=== PATIENT | male | born 1950 | race African-American/Black ===

== ENCOUNTER 2016-05-14 13:04 | Inpatient (IN) | payer OTHER ==
[2016-05-14] MEDS ORDERED: methylPREDNISolone NA SUCC 125 MG/2 ML VIAL IVPB ONE (13:12)
[2016-05-14] MEDS ORDERED: FAMOTIDINE 20 MG/50 ML IVPB 20 MG in PREMIX 50 IVPB ONE (13:13)
--- NOTE | 2016-05-14 13:18 | PDOC ---
History of Present Illness - General Chief Complaint: Allergic Reaction Stated Complaint: ALLERGIC REACTION Time Seen by Provider: 05/14/16 13:09 History Source: Patient Exam Limitations: No Limitations - History of Present Illness Initial Comments: 05/14/16 13:17 CHIEF COMPLAINT: Difficulty breathing HISTORY OF PRESENT ILLNESS: This is a 66 year old male with a history of HTN, dyslipidemia, and NIDDM who presents by ambulance complaining of sudden onset of difficulty breathing at 12pm. He is unable to swallow his own saliva and notes a change in his voice. He denies ingestion of any new foods. He started taking Lisinopril/HCTZ two days ago. V/s on arrival are notable for P 110 and RR 24. PCP is Dr. Moralez at [facility]. REVIEW OF SYSTEMS: GENERAL/CONSTITUTIONAL: No fever or chills. No weakness. No weight change. HEAD, EYES, EARS, NOSE AND THROAT: Difficulty swallowing, change in voice. CARDIOVASCULAR: No chest pain or palpitations. RESPIRATORY: Difficulty breathing. GASTROINTESTINAL: No nausea, vomiting, diarrhea or constipation. GENITOURINARY: No dysuria, frequency, or change in urination. MUSCULOSKELETAL: No joint or muscle swelling or pain. No neck or back pain. SKIN: No rash or easy bruising. NEUROLOGIC: No headache, vertigo, loss of consciousness, or loss of sensation. PSYCHIATRIC: No depression or anxiety. ENDOCRINE: No increased thirst. No abnormal weight change. HEMATOLOGIC/LYMPHATIC: No anemia, easy bleeding, or history of blood clots. ALLERGIC/IMMUNOLOGIC: Sulfa allergy. PHYSICAL EXAM: GENERAL: The patient is awake, alert, and fully oriented, in no acute distress. HEAD: Normal with no signs of trauma. ENT: Marked soft palate and uvular edema. Tongue and lips are normal. Unable to swallow secretions. Muffled voice. No stridor at rest; stridor is inducible. LUNGS: Tachypnea. Clear to auscultation bilaterally. Normal excursion. No respiratory distress or use of accessory muscles. CV: RRR, S1/S2, no MRG. Cap refill < 2 sec. ABDOMEN: Soft, non-distended, non-tender. EXTREMITIES: Normal range of motion, no edema. NEUROLOGICAL: Normal speech, normal gait. CN II-XII grossly intact. PSYCH: Normal mood, normal affect. SKIN: Warm, dry, normal turgor, no rashes or lesions noted. Past History - Past Medical History Allergies/Adverse Reactions: Allergies Allergy/AdvReac Type Severity Reaction Status Date / Time Sulfa (Sulfonamide Allergy Mild Rash Verified 05/14/16 13:12 Antibiotics) ED Treatment Course - LABORATORY CBC & Chemistry Diagram: 05/14/16 13:20 05/14/16 13:20 - RADIOLOGY Radiology Studies Ordered: Category Date Time Status CHEST X-RAY PORTABLE* [RAD] Stat Radiology 05/14/16 13:11 Ordered Medical Decision Making - Medical Decision Making 05/14/16 13:27 A/P: 66 year old male with angioedema, likely ACEI-induced. 1. Patient placed in monitored bed, IV access immediately obtained by the nurse 2. Solu-Medrol 125mg, Pepcid 20mg, Benadryl 25mg IVP ordered 3. FFP ordered 4. Discussed with Dr. Steen who will evaluate patient in ED 5. Anticipate ICU admission 05/14/16 13:42 Approved for ICU admission by Dr. Hawley. *DC/Admit/Observation/Transfer Diagnosis at time of Disposition: Angioedema Qualifiers: Encounter type: initial encounter Qualified Code(s): T78.3XXA - Angioneurotic edema, initial encounter - Discharge Dispostion Condition at time of disposition: Guarded Admit: Yes
[2016-05-14] MEDS ORDERED: methylPREDNISolone NA SUCC 125 MG/2 ML VIAL ONE (13:20)
[2016-05-14] MEDS ORDERED: FAMOTIDINE 20 MG/50 ML IVPB 50 ML IVPB ONE (13:20)
[2016-05-14 13:31] VITALS: BMI 34.4
[2016-05-14 13:43] LABS: BASOPHIL 1.6 % (0-2.0); EOSINOPHIL 0.8 % (0-4.5); MCH 28.8 pg (25.7-33.7); MCHC 34.2 g/dl (32.0-35.9); MEAN CELL VOLUME 84.3 fl (80-96); MEAN PLT VOLUME 9.4 fl (7.5-11.1); NEUTROPHILS 51.2 % (42.8-82.8); PLATELET COUNT 180 K/MM3 (134-434); RDW 14.1 % (11.9-15.9); WHITE BLOOD COUNT 8.8 K/mm3 (4.0-10.0)
--- NOTE | 2016-05-14 13:56 | PDOC ---
*Physical Exam - Vital Signs Last Vital Signs Temp Pulse Resp BP Pulse Ox 110 H 22 143/94 99 05/14/16 13:24 05/14/16 13:24 05/14/16 13:24 05/14/16 13:24 Heart Score/ECG Review #1 ECG reviewed & interpreted by me at: 14:16 General ECG Interpretation: Sinus Rhythm, Normal Rate (84), Normal Intervals, No acute ischemic changes ED Treatment Course - LABORATORY CBC & Chemistry Diagram: 05/14/16 13:20 05/14/16 13:20 - ADDITIONAL ORDERS Additional order review: 05/14/16 13:20 RBC 5.84 H MCV 84.3 MCHC 34.2 RDW 14.1 MPV 9.4 Neutrophils % 51.2 Lymphocytes % 38.9 Monocytes % 7.5 Eosinophils % 0.8 Basophils % 1.6 - Medications Given in the ED: ED Medications Discontinued Medications Generic Name Dose Route Start Last Admin Trade Name Freq PRN Reason Stop Dose Admin Diphenhydramine HCl 25 mg 05/14/16 13:14 05/14/16 13:31 Benadryl Injection - IVPUSH 05/14/16 13:15 25 mg ONCE ONE Administration Famotidine/Sodium Chloride 20 50 mls @ 100 mls/hr 05/14/16 13:13 05/14/16 13:31 mg/ Miscellaneous IVPB 05/14/16 13:42 100 mls/hr ONCE ONE Administration Methylprednisolone Sodium Succinate 125 mg 05/14/16 13:12 05/14/16 13:31 Solu-Medrol - IVPB 05/14/16 13:13 125 mg ONCE ONE Administration Medical Decision Making - Critical Care Time Total Critical Care Time (minutes): 30 Critical Care Statement: The care of this patient involved high complexity decision making to prevent further life threatening deterioration of the patient 's condition and/or to evalute & treat vital organ system(s) failure or risk of failure. - Medical Decision Making 05/14/16 13:54 Patient seen and evaluated with the nurse practitioner. I agree with the overall evaluation, assessment, and management with the following summary of visit: 66-year-old male presents with severe uvular edema after first dose of IVANA inhibitor. No stridor, breathing clearly but nearly obstructing uvula, able to manage his secretions, able to speak but with hot potato voice. Evaluated with ENT at bedside, airway is currently patent. Will admit to ICU for close monitoring, FFP, Benadryl, Pepcid, steroids ordered. *DC/Admit/Observation/Transfer Diagnosis at time of Disposition: Angioedema Qualifiers: Encounter type: initial encounter Qualified Code(s): T78.3XXA - Angioneurotic edema, initial encounter
[2016-05-14 13:57] LABS: INR 1.15 (0.82-1.09); PROTHROMBIN TIME (PATIENT) 12.7 SEC (9.98-11.88)
[2016-05-14 14:13] LABS: CALCIUM 9.4 mg/dL (8.5-10.1); CREATININE 1.4 mg/dL (0.7-1.3); TOT PROT 8.3 g/dl (6.4-8.2)
[2016-05-14] MEDS ORDERED: SODIUM CHLORIDE 0.45% 1,000 ML IV SCH (16:00)
--- NOTE | 2016-05-14 17:06 | HP ---
CHIEF COMPLAINT: Shortness of breath inability to swallow PCP: Dr. Moralez at [facility] HISTORY OF PRESENT ILLNESS: 66M history of HTN, HLD, DM, presents to the ED with trouble speaking, inability to swallow his own saliva, and shortness of breath. Called pharmacy and patient was just started on lisinopril by his new PMD. Per his pharmacy he just picked up his new medications this morning and per patient he took lisinopril/HCTZ combo pill this morning and around 12pm is when he started experiencing his symptoms. Patient denies nausea vomiting fevers chills chest pain or shortness of breath. Denies any other symptoms. when questioned about his PMH he states he does not have HLD and he just started seeing his PMD for the first time as his original PMD left town and no longer is practicing in the area. He states all his medications were switched around. His current meds are lisinopril/HCTZ 10/12.5 metformin 1000mg BID Aspirin 81and atorvastatin 20mg. Per pharmacy he never picked up the aspirin but it was prescribed. His old medications per pharmacy were metformin 500mg BID and chlorthalidone 25mg daily. Patient states his voice is different and muffled. ER course was notable for: (1)Pepcid Solu-Medrol (2)IVF CXR EKG (3)FFP EDUARDA contacted Recent Travel:Denies PAST MEDICAL HISTORY:As above PAST SURGICAL HISTORY:Denies Social History: Smoking:Denies Alcohol:Denies Drugs:Denies Family History: Allergies Sulfa (Sulfonamide Antibiotics) Allergy (Mild, Verified 05/14/16 13:12) Rash HOME MEDICATIONS: Home Medications Medication Instructions Recorded Aspirin [ASA -] 81 mg PO DAILY 05/14/16 Atorvastatin Ca [Lipitor] 20 mg PO HS 05/14/16 Lisinopril/Hydrochlorothiazide 1 each PO DAILY 05/14/16 [Lisinopril-Hctz 10-12.5 mg Tab] Metformin HCl [Metformin HCl ER] 1,000 mg PO BID 05/14/16 REVIEW OF SYSTEMS CONSTITUTIONAL: Absent: fever, chills, diaphoresis, generalized weakness, malaise, loss of appetite, weight change HEENT: Absent: rhinorrhea, nasal congestion, throat pain, mouth swelling, ear pain, eye pain, visual changes Present:throat swelling, difficulty swallowing, inability to swallow saliva CARDIOVASCULAR: Absent: chest pain, syncope, palpitations, irregular heart rate, lightheadedness , peripheral edema RESPIRATORY: Absent: cough, , dyspnea with exertion, orthopnea, wheezing, stridor, hemoptysis Present: shortness of breath GASTROINTESTINAL: Absent: abdominal pain, abdominal distension, nausea, vomiting, diarrhea, constipation, melena, hematochezia GENITOURINARY: Absent: dysuria, frequency, urgency, hesitancy, hematuria, flank pain, genital pain MUSCULOSKELETAL: Absent: myalgia, arthralgia, joint swelling, back pain, neck pain SKIN: Absent: rash, itching, pallor HEMATOLOGIC/IMMUNOLOGIC: Absent: easy bleeding, easy bruising, lymphadenopathy, frequent infections ENDOCRINE: Absent: unexplained weight gain, unexplained weight loss, heat intolerance, cold intolerance NEUROLOGIC: Absent: headache, focal weakness or paresthesias, dizziness, unsteady gait, seizure, mental status changes, bladder or bowel incontinence PSYCHIATRIC: Absent: anxiety, depression, suicidal or homicidal ideation, hallucinations. PHYSICAL EXAMINATION Vital Signs - 24 hr 05/14/16 05/14/16 05/14/16 13:53 15:10 15:41 Temperature 97.8 F 98 F Pulse Rate [ 91 H 91 H 85 Right Radial] Respiratory 22 16 20 Rate Blood Pressure 140/83 135/81 158/81 [Left Arm] O2 Sat by Pulse 100 100 2 L Oximetry (%) GENERAL: Awake, alert, and fully oriented, Anxious. Muffled Voice HEAD: Normal with no signs of trauma. EYES: Pupils equal, round and reactive to light EARS, NOSE, THROAT: Moist mucous membranes. Edematous pharynx and uvula Muffled voice. No edema of face eyes or tongue. NECK: Normal range of motion, supple without lymphadenopathy, JVD, or masses. No Stridor LUNGS: Breath sounds equal, clear to auscultation bilaterally. No accessory muscle use. no tachypnea HEART: Regular rate and rhythm, normal S1 and S2 without murmur ABDOMEN: Soft, nontender, not distended, normoactive bowel sounds. UPPER EXTREMITIES: warm, well-perfused. No peripheral edema. LOWER EXTREMITIES: warm, well-perfused. No calf tenderness. No peripheral edema. NEUROLOGICAL: Cranial nerves II-XII intact. muffled voice. Gait not observed. PSYCHIATRIC: mildly anxious EKG: NSR CXR: clear ASSESSMENT/PLAN: 66M with PMH of HTN, HLD, DM, presents to the hospital with angioedema secondary to first time lisinopril use. Angioedema: Admit to ICU for airway monitoring Decadron 10mg IV Q6h Benadryl 50mg IV Q6h Pepcid IV BID Patient already received [facility] emergent int[facility] is necessary. Rhino Kit at bedside incase emergent tracheostomy needed IVF 1/2 NS @ 75ml/hr Keep NPO No PO Medications ENT called by ED team will follow up consult stop lisinopril on discharge ROCÍO: acute kidney injury. unknown baseline no known history of renal failure. possible this is chronic. Likely from dehydration avoid nephrotoxic drugs renally dose meds for now ivf for hydration HTN: no more lisinopril hold HCTZ as can not swallow at this time Metoprolol IV Q4h with hold parameters HLD: Hold statin at this time as can not take PO medications DM: Fingersticks for BGM ISS to control blood glucose as he can not take PO medications and he will be on decadron FEN: 1/2 NS @ 75ml/hr hypokalemia will replete NPO PPx: HSQ Pepcid no PT consult needed at this time will assess patient daily for the need for physical therapy Case discussed with attending Dr. Verdugo Visit type - Emergency Visit Emergency Visit: Yes ED Registration Date: 05/14/16 Care time: The patient presented to the Emergency Department on the above date and was hospitalized for further evaluation of their emergent condition. - New Patient This patient is new to me today: Yes Date on this admission: 05/14/16 - Critical Care Critical Care patient: Yes Total Critical Care Time (in minutes): 60 Critical Care Statement: The care of this patient involved high complexity decision making to prevent further life threatening deterioration of the patient 's condition and/or to evalute & treat vital organ system(s) failure or risk of failure.
--- NOTE | 2016-05-14 17:33 | PN ---
Teaching Attending Note Name of Resident: Jose Rafael Villafana ATTENDING PHYSICIAN STATEMENT I saw and evaluated the patient. I reviewed the resident's note and discussed the case with the resident. I agree with the resident's findings and plan as documented. SUBJECTIVE: This is a 66-year-old man with a history of HTN, type 2 DM, hyperlipidemia who comes to the ER complaining of SOB, difficulty speaking, difficulty swallowing saliva which started suddenly around 12 noon. He had taken lisinopril-HCTZ for the first time this morning. OBJECTIVE: Vital Signs Period Temp Pulse Resp BP Sys/Day Pulse Ox Last 24 Hr 97.8 F-98 F 85-110 16-22 135-158/81-94 2-100 HEENT: Lips, pharynx, uvula swollen. No swelling of tongue HEART: S1 S2, tachycardic LUNGS: Clear ABDOMEN: Obese, soft, non-tender, non-distended, normal BS EXTREMITIES: No edema ASSESSMENT AND PLAN: 1. Angioedema likely secondary to ACEI - FFP, SoluMedrol, Pepcid, Benadryl given in ER - Admit to ICU - Discontinue Lisinopril - Continue IV steroids, IV Pepcid, IV Benadryl - NPO - IV fluid 2. Hypertension - Discontinue Lisinopril secondary to allergic reaction - Hold HCTZ - Monitor BP 3. Hyperlipidemia - Hold Lipitor until able to take PO 4. Type 2 DM - Hold Metformin - Fingersticks with Novolog sliding scale
--- NOTE | 2016-05-14 17:46 | CONSULT ---
Consultation: REQUESTING PROVIDER: Dr. Verdugo CONSULT REQUEST: We have been asked to medically evaluate this patient for Critical Care HISTORY OF PRESENT ILLNESS: 66 yo M h/o HTN, HLD, and NIDDM admitted to the ICU for angioedema likely 2/2 adverse reaction from IVANA-I. He was BIBEMS to the ED due to difficulty breathing around noon. Patient stated that two days ago he was seen by his PMD' s covering physician, who prescribed him with cholesterol pill and lisinopril. Now he feels his throat is swollen and unable to swallow anything. He denies fever, chills, n/v, trauma to oropharygeal cavity, and pain on swallowing. REVIEW OF SYSTEMS: CONSTITUTIONAL: Absent: fever, chills, diaphoresis, generalized weakness, malaise, loss of appetite, weight change HEENT: Absent: rhinorrhea, nasal congestion, throat pain, throat swelling, difficulty swallowing, mouth swelling, ear pain, eye pain, visual changes CARDIOVASCULAR: Absent: chest pain, syncope, palpitations, irregular heart rate, lightheadedness , peripheral edema RESPIRATORY: Short of breath Absent: cough, dyspnea with exertion, orthopnea, wheezing, stridor, hemoptysis GASTROINTESTINAL: Unable to swallow Absent: abdominal pain, abdominal distension, nausea, vomiting, diarrhea, constipation, melena, hematochezia GENITOURINARY: Absent: dysuria, frequency, urgency, hesitancy, hematuria, flank pain, genital pain MUSCULOSKELETAL: Absent: myalgia, arthralgia, joint swelling, back pain, neck pain SKIN: Absent: rash, itching, pallor HEMATOLOGIC/IMMUNOLOGIC: Absent: easy bleeding, easy bruising, lymphadenopathy, frequent infections ENDOCRINE: Absent: unexplained weight gain, unexplained weight loss, heat intolerance, cold intolerance NEUROLOGIC: Absent: headache, focal weakness or paresthesias, dizziness, unsteady gait, seizure, mental status changes, bladder or bowel incontinence PSYCHIATRIC: Absent: anxiety, depression, suicidal or homicidal ideation, hallucinations. PHYSICAL EXAMINATION Vital Signs Temperature 98 F 05/14/16 15:41 Pulse Rate 85 05/14/16 15:41 Respiratory Rate 20 05/14/16 15:41 Blood Pressure 158/81 05/14/16 15:41 O2 Sat by Pulse Oximetry (%) 2 L 05/14/16 15:41 GENERAL: AAO x3, not in any cardiopulmonary distress HEAD: AT, NC ENT: Extensive edema in upper soft palate and tonsil without exudates LUNGS: CTAB HEART: Regular rate and rhythm, normal S1 and S2 without murmur, rub or gallop. ABDOMEN: Soft, obese, nontender, not distended, normoactive bowel sounds, no guarding, no rebound, no masses. EXTREMITIES: No calf tenderness. No peripheral edema. NEUROLOGICAL: Cranial nerves II-XII intact. Normal speech. PSYCHIATRIC: Cooperative. Good eye contact. Appropriate mood and affect. CBCD WBC 8.8 K/mm3 (4.0-10.0) 05/14/16 13:20 RBC 5.84 M/mm3 (4.00-5.60) H 05/14/16 13:20 Hgb 16.8 GM/dL (11.7-16.9) 05/14/16 13:20 Hct 49.2 % (35.4-49) H 05/14/16 13:20 MCV 84.3 fl (80-96) 05/14/16 13:20 MCHC 34.2 g/dl (32.0-35.9) 05/14/16 13:20 RDW 14.1 % (11.9-15.9) 05/14/16 13:20 Plt Count 180 K/MM3 (134-434) 05/14/16 13:20 MPV 9.4 fl (7.5-11.1) 05/14/16 13:20 CMP Sodium 138 mmol/L (136-145) 05/14/16 13:20 Potassium 3.3 mmol/L (3.5-5.1) L 05/14/16 13:20 Chloride 97 mmol/L (98-107) L 05/14/16 13:20 Carbon Dioxide 30 mmol/L (21-32) 05/14/16 13:20 Anion Gap 11 (8-16) 05/14/16 13:20 BUN 18 mg/dL (7-18) 05/14/16 13:20 Creatinine 1.4 mg/dL (0.7-1.3) H 05/14/16 13:20 Creat Clearance w eGFR 50.70 (>60) 05/14/16 13:20 Calcium 9.4 mg/dL (8.5-10.1) 05/14/16 13:20 Total Bilirubin 1.0 mg/dL (0.2-1.0) 05/14/16 13:20 AST 11 U/L (15-37) L 05/14/16 13:20 ALT 11 U/L (12-78) L 05/14/16 13:20 Alkaline Phosphatase 85 U/L (45-117) 05/14/16 13:20 Total Protein 8.3 g/dl (6.4-8.2) H 05/14/16 13:20 Albumin 4.0 g/dl (3.4-5.0) 05/14/16 13:20 Intake & Output 05/11/16 05/12/16 05/13/16 05/14/16 23:59 23:59 23:59 23:59 Intake Total 600 Balance 600 Weight 99.79 kg Active Medications Generic Name Dose Route Start Last Admin Trade Name Freq PRN Reason Stop Dose Admin Chlorhexidine Gluconate 1 applic 05/14/16 22:00 Hibiclens For Decolonization - TP HS SHERI Dexamethasone Sodium Phosphate 10 mg 05/14/16 16:00 Decadron Injection - IVPB Q6H-IV SHERI Heparin Sodium (Porcine) 5,000 unit 05/14/16 22:00 Heparin - SQ TID [facility] Famotidine/Sodium Chloride 50 mls @ 100 mls/hr 05/14/16 22:00 Pepcid 20 Mg Premixed Ivpb - IVPB BID SHERI Sodium Chloride 1,000 mls @ 75 mls/hr 05/14/16 16:00 1/2 Normal Saline IV ASDIR [facility] Insulin Aspart 1 vial 05/14/16 18:00 Novolog Vial Sliding Scale - SQ Q6HPO [facility] Protocol Metoprolol Tartrate 5 mg 05/14/16 16:00 Lopressor Injection - IVPUSH Q4H [facility] Mupirocin 1 applic 05/14/16 22:00 Bactroban Ointment (For Decolonization) - NS 05/19/16 21:59 BID [facility] Imaging CXR on 05/14: No acute pathology ASSESSMENT/PLAN: 66 yo M h/o HTN, HLD, and NIDDM admitted to the ICU for angioedema likely 2/2 adverse reaction from IVANA-I. GI: Angioedema 2/2 IVANA-I - s/p FFP transfusion, Solu-Medrol 125mg, Pepcid 20mg, Benadryl 25mg in ED * cont. decadron 10mg IVPUSH Q6H * cont. Pepcid - Supportive care - Monitor airway closely - Low intubation threshold - Advised to avoid IVANA-I from now on - ENT consult - F/U on S&S Cardiac: HTN - On lopressor 5mg IVPUSH Q4H Endo: IDDM - On sliding scale Renal: ROCÍO - Unknown baseline - Likely pre-renal 2/2 dehydration - Cont. hydration FEN - NS 75cc/hr - Low K+ and Cl-, cont. KCl - NPO, both food and meds Prophylaxis - DVT: Heparin SQ TID - GI: on Pepcid Disposition - Discharge after angioedema resolves Code status - Full code Visit type - Emergency Visit Emergency Visit: Yes ED Registration Date: 05/14/16 Care time: The patient presented to the Emergency Department on the above date and was hospitalized for further evaluation of their emergent condition. - New Patient This patient is new to me today: Yes Date on this admission: 05/14/16 - Critical Care Critical Care patient: Yes Total Critical Care Time (in minutes): 45 Critical Care Statement: The care of this patient involved high complexity decision making to prevent further life threatening deterioration of the patient 's condition and/or to evalute & treat vital organ system(s) failure or risk of failure.
[2016-05-14] MEDS: METOPROLOL TARTRATE 5 MG/5 ML VIAL IVPUSH SCH ×2 (19:06→22:00)
[2016-05-14] MEDS: DEXAMETHASONE SOD PHOSPHATE 10 MG/1 ML VIAL IVPB SCH ×2 (19:07→21:59)
[2016-05-14] MEDS: KCL 10 MEQ IVPB 100 ML IVPB SCH ×3 (19:07→22:00)
[2016-05-14] MEDS ORDERED: HEMOQUE TEST 1 EACH EACH ONE (19:27)
[2016-05-14] MEDS: INSULIN SLIDING SCALE (NOVOLOG) 1 VIAL SQ SCH (19:32)
--- NOTE | 2016-05-14 20:36 | CONSULT ---
Consult Consult Specialty:: Pulm/CC - History of Present Illness History of Present Illness: Pt is a 66yr old man with PMHx of HTN, DM. He presents to the ER via EMS from home with CC of difficulty breathing, throat tightness. Pt started lisinopril . Pt started on decadron/benadryl/pepcid/ffp and admitted to the ICU for further management. Upon assessment pt endorses improved work of breathing, denies SOB/chest pain/n/v/d. Trace edema to bilateral feet. 133/42, HR 90s ( sinus on tele), RR19 mid/upper 90s O2 sat on RA. - History Source History Provided By: Patient, Medical Record Limitations to Obtaining History: No Limitations - Alcohol/Substance Use Hx Alcohol Use: No - Smoking History Smoking history: Unknown if ever smoked Home Medications - Allergies Allergies/Adverse Reactions: Allergies Allergy/AdvReac Type Severity Reaction Status Date / Time Sulfa (Sulfonamide Allergy Mild Rash Verified 05/14/16 13:12 Antibiotics) - Home Medications Home Medications: Ambulatory Orders Aspirin [ASA -] 81 mg PO DAILY 05/14/16 Atorvastatin Ca [Lipitor] 20 mg PO HS 05/14/16 Lisinopril/Hydrochlorothiazide [Lisinopril-Hctz 10-12.5 mg Tab] 1 each PO DAILY 05/14/16 Metformin HCl [Metformin HCl ER] 1,000 mg PO BID 05/14/16 Review of Systems - Review of Systems HENT: reports: Difficult Swallowing, Mouth Swelling Cardiovascular: reports: Shortness of Breath. denies: Chest Pain Gastrointestinal: denies: Abdominal Pain, Diarrhea, Nausea, Vomiting Genitourinary: denies: Dysuria Physical Exam Vital Signs: Vital Signs Period Temp Pulse Resp BP Sys/Day Pulse Ox Last 24 Hr 97.6 F-98 F 81-110 16-22 133-158/73-94 2-100 Intake & Output 05/11/16 05/12/16 05/13/16 05/14/16 23:59 23:59 23:59 23:59 Intake Total 600 Balance 600 Weight 219 lb 15.988 oz Constitutional: Yes: Well Nourished, No Distress, Calm, Diaphoresis (slight) Eyes: Yes: WNL HENT: Yes: Atraumatic, Other (mallampati III,). No: Hoarseness Neck: Yes: Other (slightly edenemous) Cardiovascular: Yes: S1, S2, Other (sinus on tele) Respiratory: Yes: Diminished (diffuse), Rales (bilateral, fine at bases). No: Wheezes Gastrointestinal: Yes: Normal Bowel Sounds, Abdomen, Obese. No: Tenderness ...Rectal Exam: Yes: Deferred Musculoskeletal: No: Muscle Pain Edema: Yes Edema: LUE: Trace, RUE: Trace Peripheral Pulses WNL: (+2 bilateral pedal pulses) Integumentary: Yes: WNL Neurological: Yes: WNL Psychiatric: Yes: WNL Labs: Abnormal Lab Results 05/14/16 05/14/16 05/14/16 13:20 13:20 13:20 RBC 5.84 H Hct 49.2 H INR 1.15 H Potassium 3.3 L Chloride 97 L Creatinine 1.4 H Random Glucose 221 H AST 11 L ALT 11 L Total Protein 8.3 H Assessment/Plan Pt is a 66yr old man with PMHx of HTN, DM. Now in the ICU for angioedema secondary to lisinopril. Pulm: -Monitor airway overnight, low threshold to intubate -o2 support prn -Continue decadron/benadryl/pepcid -f/u neck ct ID: -Monitor off antibiotics for now Cardiac -Discontinue ACEI -Do not use ARBS -BP control Endo -BGM -Glycemic control Neuro -Pain management ENT: -Consult -Advance diet per ENT Prophylactic -DVT -Aspiration precautions
[2016-05-14] MEDS ORDERED: POTASSIUM CHLORIDE TABS 20 MEQ TABLET.ER (FP) PO ONE (21:30)
[2016-05-14] MEDS: HEPARIN NA (PORCINE) 5,000 UNITS/ML 1ML VIAL SQ SCH (21:59)
[2016-05-14] MEDS ORDERED: CHLORHEXIDINE GLUCONATE 4% CLEANSER FOR DECOLONIZATION TP SCH (22:00)
[2016-05-14] MEDS: MUPIROCIN 2% TOPICAL OINTMENT FOR DECOLONIZATION NS SCH (22:01)
[2016-05-14] MEDS: FAMOTIDINE 20 MG/50 ML IVPB 50 ML IVPB SCH (22:01)
[2016-05-15] MEDS: METOPROLOL TARTRATE 5 MG/5 ML VIAL IVPUSH SCH ×3 (04:14→10:16)
[2016-05-15] MEDS: INSULIN SLIDING SCALE (NOVOLOG) 1 VIAL SQ SCH ×4 (04:14→13:48)
[2016-05-15] MEDS: DEXAMETHASONE SOD PHOSPHATE 10 MG/1 ML VIAL IVPB SCH ×2 (04:15→09:44)
[2016-05-15 06:32] LABS: MCH 29.1 pg (25.7-33.7); MCHC 34.4 g/dl (32.0-35.9); MEAN CELL VOLUME 84.6 fl (80-96); MEAN PLT VOLUME 9.7 fl (7.5-11.1); PLATELET COUNT 197 K/MM3 (134-434); RDW 13.7 % (11.9-15.9); WHITE BLOOD COUNT 11.4 K/mm3 (4.0-10.0)
[2016-05-15] MEDS: HEPARIN NA (PORCINE) 5,000 UNITS/ML 1ML VIAL SQ SCH ×2 (06:33→13:48)
[2016-05-15 06:39] LABS: INR 1.18 (0.82-1.09)
[2016-05-15 06:49] LABS: CALCIUM 9.4 mg/dL (8.5-10.1); MAGNESIUM 1.7 mg/dL (1.8-2.4)
[2016-05-15 06:59] LABS: CREATININE 1.3 mg/dL (0.7-1.3)
[2016-05-15 07:03] LABS: PHOSPHOROUS 1.1 mg/dL (2.5-4.9)
[2016-05-15 07:45] VITALS: TEMP 98.4
[2016-05-15] MEDS ORDERED: SODIUM PHOSPHATE - 30 MM in SODIUM CHLORIDE 250 ML IVPB ONE (08:03)
[2016-05-15] MEDS ORDERED: MAGNESIUM SULF 50% (8.12 MEQ/2 ML-1 GM VIAL) IVPB ONE (08:30)
[2016-05-15] MEDS: FAMOTIDINE 20 MG/50 ML IVPB 50 ML IVPB SCH (09:43)
[2016-05-15] MEDS: MUPIROCIN 2% TOPICAL OINTMENT FOR DECOLONIZATION NS SCH (10:15)
--- NOTE | 2016-05-15 12:23 | EKG ---
Test Reason : Blood Pressure : / mmHG Vent. Rate : 084 BPM Atrial Rate : 084 BPM P-R Int : 194 ms QRS Dur : 092 ms QT Int : 388 ms P-R-T Axes : 060 -17 032 degrees QTc Int : 458 ms NORMAL SINUS RHYTHM MINIMAL VOLTAGE CRITERIA FOR LVH, MAY BE NORMAL VARIANT SEPTAL INFARCT , AGE UNDETERMINED ABNORMAL ECG NO PREVIOUS ECGS AVAILABLE Confirmed by FELIPE HILLIARD MD ([id number]) on 05/15/2016 12:22:54 PM Referred By: Confirmed By:FELIPE HILLIARD MD
[2016-05-15] MEDS ORDERED: NAPH,MB-DB/K PH,MBDB POWDER PACKET PO ONE (13:15)
--- NOTE | 2016-05-15 13:55 | PN ---
Teaching Attending Note Name of Resident: Jose Rafael Villafana ATTENDING PHYSICIAN STATEMENT I saw and evaluated the patient. I reviewed the resident's note and discussed the case with the resident. I agree with the resident's findings and plan as documented. Patient is better, able to eat, no acute distress, wants to go home. Vital Signs Temperature 98.4 F 05/15/16 04:00 Pulse Rate 96 H 05/15/16 10:16 Respiratory Rate 18 05/15/16 10:00 Blood Pressure 128/70 05/15/16 10:16 O2 Sat by Pulse Oximetry (%) 100 05/14/16 23:31 CBCD WBC 11.4 K/mm3 (4.0-10.0) H 05/15/16 05:05 RBC 5.27 M/mm3 (4.00-5.60) 05/15/16 05:05 Hgb 15.3 GM/dL (11.7-16.9) 05/15/16 05:05 Hct 44.6 % (35.4-49) 05/15/16 05:05 MCV 84.6 fl (80-96) 05/15/16 05:05 MCHC 34.4 g/dl (32.0-35.9) 05/15/16 05:05 RDW 13.7 % (11.9-15.9) 05/15/16 05:05 Plt Count 197 K/MM3 (134-434) 05/15/16 05:05 MPV 9.7 fl (7.5-11.1) 05/15/16 05:05 CMP Sodium 136 mmol/L (136-145) 05/15/16 05:05 Potassium 4.1 mmol/L (3.5-5.1) D 05/15/16 05:05 Chloride 100 mmol/L (98-107) 05/15/16 05:05 Carbon Dioxide 26 mmol/L (21-32) 05/15/16 05:05 Anion Gap 10 (8-16) 05/15/16 05:05 BUN 15 mg/dL (7-18) 05/15/16 05:05 Creatinine 1.3 mg/dL (0.7-1.3) 05/15/16 05:05 Creat Clearance w eGFR 50.70 (>60) 05/14/16 13:20 Random Glucose 249 mg/dL (74-106) H 05/15/16 05:05 Calcium 9.4 mg/dL (8.5-10.1) 05/15/16 05:05 Total Bilirubin 1.0 mg/dL (0.2-1.0) 05/14/16 13:20 AST 11 U/L (15-37) L 05/14/16 13:20 ALT 11 U/L (12-78) L 05/14/16 13:20 Alkaline Phosphatase 85 U/L (45-117) 05/14/16 13:20 Total Protein 8.3 g/dl (6.4-8.2) H 05/14/16 13:20 Albumin 4.0 g/dl (3.4-5.0) 05/14/16 13:20 Current Medications Generic Name Dose Route Start Last Admin Trade Name Jesseq PRN Reason Stop Dose Admin Chlorhexidine Gluconate 1 applic 05/14/16 22:00 05/14/16 22:01 Hibiclens For Decolonization - TP 1 applic HS SHERI Administration Dexamethasone Sodium Phosphate 10 mg 05/14/16 16:00 05/15/16 09:44 Decadron Injection - IVPB 10 mg Q6H-IV SHERI Administration Heparin Sodium (Porcine) 5,000 unit 05/14/16 22:00 05/15/16 13:48 Heparin - SQ Not Given TID SHERI Famotidine/Sodium Chloride 50 mls @ 100 mls/hr 05/14/16 22:00 05/15/16 09:43 Pepcid 20 Mg Premixed Ivpb - IVPB 100 mls/hr BID SHERI Administration Sodium Chloride 1,000 mls @ 75 mls/hr 05/14/16 16:00 05/14/16 19:06 1/2 Normal Saline IV 75 mls/hr ASDIR SHERI Administration Insulin Aspart 1 vial 05/14/16 18:00 05/15/16 13:48 Novolog Vial Sliding Scale - SQ Not Given Q6HPO [facility] Protocol Mupirocin 1 applic 05/14/16 22:00 05/15/16 10:15 Bactroban Ointment (For Decolonization) - NS 05/19/16 21:59 1 applic BID SHERI Administration Home Medications Medication Instructions Recorded Aspirin [ASA -] 81 mg PO DAILY 05/14/16 Atorvastatin Ca [Lipitor] 20 mg PO HS 05/14/16 Lisinopril/Hydrochlorothiazide 1 each PO DAILY 05/14/16 [Lisinopril-Hctz 10-12.5 mg Tab] Metformin HCl [Metformin HCl ER] 1,000 mg PO BID 05/14/16 Throat: able to swallow without any difficulty CHEST: CTA BL, no w/r/r Heart: S1S2 positive ASSESSMENT AND PLAN: 66yo M with PMHx of HTN, HLD, DM, presents to the hospital with angioedema secondary to first time lisinopril use. # Angioedema: Due to Lisinipril, was admitted in ICU, patient was monitored, able to eat without any difficulty. will send patient home with Epipen adult to carry with him at all the time , Prednisone 40mg daily x1 then 35mg x1 then 30mg x1 then 25 x1,20 x1 ,then 10mg.x , Pepcid 40mg po daily #20 ,to take it with prednisone and keep it with him for any reation, Benadryl 50mg po q6h as needed. PLease come back to ER. immediately for any anaphylactic reaction. DO NOT TAKE LISINIPRIL OR ANY ACI-INHIBITOR DRUGS since you anaphylactic reaction HTN: continue with ur old drug CHLORTHALIDONE HLD: continue statins at home DM: continue with METFormin that u were taking at home KEEP WITH YOU AT ALL THE TIME: PREDNISONE 40mg BENADRYl 50mg PEPCID 40mg EPIPEN Adult
--- NOTE | 2016-05-15 14:07 | DS ---
Physical Exam: SUBJECTIVE: Patient seen and examined OBJECTIVE: Vital Signs Period Temp Pulse Resp BP Sys/Day Pulse Ox Last 24 Hr 97.6 F-98.4 F 75-103 14-22 106-158/50-91 2-100 PHYSICAL EXAM GENERAL: Awake, alert, and fully oriented, Anxious. Normal voice per patient and daughter HEAD: Normal with no signs of trauma. EYES: Pupils equal, round and reactive to light EARS, NOSE, THROAT: Moist mucous membranes. Edematous pharynx and uvula completely resolved NECK: Normal range of motion, supple without lymphadenopathy, JVD, or masses. No Stridor LUNGS: Breath sounds equal, clear to auscultation bilaterally. No accessory muscle use. no tachypnea HEART: Regular rate and rhythm, normal S1 and S2 without murmur ABDOMEN: Soft, nontender, not distended, normoactive bowel sounds. UPPER EXTREMITIES: warm, well-perfused. No peripheral edema. LOWER EXTREMITIES: warm, well-perfused. No calf tenderness. No peripheral edema. NEUROLOGICAL: Cranial nerves II-XII intact. muffled voice. Gait not observed. PSYCHIATRIC: mildly anxious LABS Laboratory Results - last 24 hr 05/14/16 05/14/16 05/15/16 19:31 22:34 04:11 WBC RBC Hgb Hct MCV MCHC RDW Plt Count MPV INR Sodium Potassium Chloride Carbon Dioxide Anion Gap BUN Creatinine POC Glucometer [phone] [phone] Random Glucose Calcium Phosphorus Magnesium 05/15/16 05/15/16 05/15/16 05:05 05:05 05:05 WBC 11.4 H RBC 5.27 Hgb 15.3 Hct 44.6 MCV 84.6 MCHC 34.4 RDW 13.7 Plt Count 197 MPV 9.7 INR 1.18 H Sodium 136 Potassium 4.1 D Chloride 100 Carbon Dioxide 26 Anion Gap 10 BUN 15 Creatinine 1.3 POC Glucometer Random Glucose 249 H Calcium 9.4 Phosphorus 1.1 L* Magnesium 1.7 L 05/15/16 05/15/16 05:49 12:12 WBC RBC Hgb Hct MCV MCHC RDW Plt Count MPV INR Sodium Potassium Chloride Carbon Dioxide Anion Gap BUN Creatinine POC Glucometer [phone] Random Glucose Calcium Phosphorus Magnesium HOSPITAL COURSE: Date of Admission:05/14/16 Date of Discharge: 05/15/16 66M HTN HLD DM took lisinopril for first time and had angioedema. COuld not swallow own spit and had trouble breathing. Uvular edema completely resolved with benadryl pepcid and decadron. tolerating Regular diet. Hypophosphatemia and hypomagnesemia and hypokalemia treated. Patient refusing to stay for repeat labs to verify the levels are increasing. He states he will follow up with me in the office next week. Risks explained to him of low electrolytes. told to stay hydrated and drink electrolyte rich fluids such as gatorade sugar free Minutes to complete discharge: 45 Discharge Summary Reason For Visit: ANGIOEDEMA Current Active Problems Angioedema (Acute) Diabetes (Chronic) Hyperlipidemia (Chronic) Hypertension (Chronic) Condition: Guarded - Instructions Diet, Activity, Other Instructions: you can not take any more of your combination medication that has Lisinopril. You can not take nay more medications which are in the class of Angiotensin converting enzyme inhibitors also known as (IVANA-I) or any aldosterone receptor blockers (ARBs). these medications can be life threatening and cause the condition you had again called angioedema. take all medications as prescribed i will continue your metformin i will continue your lipitor will prescribe chlorthalidone 25mg everyday once a day continue the baby aspirin 81mg every day you expressed you no longer want to see your primary care doctor. You can see me Dr. Jose Rafael Villafana in the office Call [phone] Call the office and schedule the appointment i am there every from 9-12 The pepcid benadryl and epinephrine is for you to keep just in case this happens again take all the prednisone as prescribed Disposition: HOME - Home Medications Comprehensive Discharge Medication List: Ambulatory Orders Aspirin [ASA -] 81 mg PO DAILY #30 tab 05/15/16 Atorvastatin Ca [Lipitor] 20 mg PO HS #30 tab 05/15/16 Diphenhydramine [Benadryl -] 50 mg NR Q6H PRN #20 capsule 05/15/16 Epinephrine [Epipen] 0.3 mg IJ PRN PRN #1 auto.injct 05/15/16 Famotidine [Pepcid -] 40 mg PO DAILY #10 tablet 05/15/16 Metformin HCl [Metformin HCl ER] 1,000 mg PO BID #60 tab 05/15/16 Prednisone 10 mg PO DAILY #32 tablet 05/15/16 Prednisone 40 mg PO PRN PRN #10 tablet 05/15/16 This patient is new to me today: No Emergency Visit: Yes ED Registration Date: 05/14/16 Care time: The patient presented to the Emergency Department on the above date and was hospitalized for further evaluation of their emergent condition. Critical Care patient: No - Discharge Referral Referred to [facility] Med P.C.: No
--- NOTE | 2016-05-15 14:10 | PN ---
Physical Exam: SUBJECTIVE: Patient seen and examined at bedside in the ICU. He reported feeling much better and able to speak and eat now. Denies fever, chills, pain on swallowing, headache, n/v, chest pain and shortness of breath. OBJECTIVE: Vital Signs Period Temp Pulse Resp BP Sys/Day Pulse Ox Last 24 Hr 97.6 F-98.4 F 75-103 14-22 106-158/50-91 2-100 GENERAL: AAO x3, not in any cardiopulmonary distress HEAD: AT, NC ENT: Much reduced swelling in upper soft palate and tonsil without exudates LUNGS: CTAB HEART: Regular rate and rhythm, normal S1 and S2 without murmur, rub or gallop. ABDOMEN: Soft, obese, nontender, not distended, normoactive bowel sounds, no guarding, no rebound, no masses. EXTREMITIES: No calf tenderness. No peripheral edema. NEUROLOGICAL: Cranial nerves II-XII intact. Normal speech. PSYCHIATRIC: Cooperative. Good eye contact. Appropriate mood and affect. CBCD WBC 11.4 K/mm3 (4.0-10.0) H 05/15/16 05:05 RBC 5.27 M/mm3 (4.00-5.60) 05/15/16 05:05 Hgb 15.3 GM/dL (11.7-16.9) 05/15/16 05:05 Hct 44.6 % (35.4-49) 05/15/16 05:05 MCV 84.6 fl (80-96) 05/15/16 05:05 MCHC 34.4 g/dl (32.0-35.9) 05/15/16 05:05 RDW 13.7 % (11.9-15.9) 05/15/16 05:05 Plt Count 197 K/MM3 (134-434) 05/15/16 05:05 MPV 9.7 fl (7.5-11.1) 05/15/16 05:05 CMP Sodium 136 mmol/L (136-145) 05/15/16 05:05 Potassium 4.1 mmol/L (3.5-5.1) D 05/15/16 05:05 Chloride 100 mmol/L (98-107) 05/15/16 05:05 Carbon Dioxide 26 mmol/L (21-32) 05/15/16 05:05 Anion Gap 10 (8-16) 05/15/16 05:05 BUN 15 mg/dL (7-18) 05/15/16 05:05 Creatinine 1.3 mg/dL (0.7-1.3) 05/15/16 05:05 Creat Clearance w eGFR 50.70 (>60) 05/14/16 13:20 Calcium 9.4 mg/dL (8.5-10.1) 05/15/16 05:05 Total Bilirubin 1.0 mg/dL (0.2-1.0) 05/14/16 13:20 AST 11 U/L (15-37) L 05/14/16 13:20 ALT 11 U/L (12-78) L 05/14/16 13:20 Alkaline Phosphatase 85 U/L (45-117) 05/14/16 13:20 Total Protein 8.3 g/dl (6.4-8.2) H 05/14/16 13:20 Albumin 4.0 g/dl (3.4-5.0) 05/14/16 13:20 Intake & Output 05/12/16 05/13/16 05/14/16 05/15/16 23:59 23:59 23:59 23:59 Intake Total 600 900 Output Total 400 Balance 600 500 Weight 99.79 kg Active Medications Generic Name Dose Route Start Last Admin Trade Name Freq PRN Reason Stop Dose Admin Chlorhexidine Gluconate 1 applic 05/14/16 22:00 05/14/16 22:01 Hibiclens For Decolonization - TP 1 applic HS SHERI Administration Dexamethasone Sodium Phosphate 10 mg 05/14/16 16:00 05/15/16 09:44 Decadron Injection - IVPB 10 mg Q6H-IV SHERI Administration Heparin Sodium (Porcine) 5,000 unit 05/14/16 22:00 05/15/16 13:48 Heparin - SQ Not Given TID SHERI Famotidine/Sodium Chloride 50 mls @ 100 mls/hr 05/14/16 22:00 05/15/16 09:43 Pepcid 20 Mg Premixed Ivpb - IVPB 100 mls/hr BID SHERI Administration Sodium Chloride 1,000 mls @ 75 mls/hr 05/14/16 16:00 05/14/16 19:06 1/2 Normal Saline IV 75 mls/hr ASDIR SHERI Administration Insulin Aspart 1 vial 05/14/16 18:00 05/15/16 13:48 Novolog Vial Sliding Scale - SQ Not Given Q6HPO [facility] Protocol Mupirocin 1 applic 05/14/16 22:00 05/15/16 10:15 Bactroban Ointment (For Decolonization) - NS 05/19/16 21:59 1 applic BID SHERI Administration ASSESSMENT/PLAN: 66 yo M h/o HTN, HLD, and NIDDM admitted to the ICU for angioedema likely 2/2 adverse reaction from IVANA-I. GI: Angioedema 2/2 IVANA-I - Resolving - Advised to avoid IVANA-I from now on Cardiac: HTN - Unknown baseline BP - Primary team will decide choice of anti-BP med upon discharge Endo: IDDM - On sliding scale Renal: ROCÍO - Resolved FEN - Refused IV fluid - Normal lytes - Diabetic diet Prophylaxis - DVT: Heparin SQ TID - GI: on Pepcid, but refused IV meds, may transition to PO Disposition - Discharge home - Will need to assign new PMD Code status - Full code Visit type - Emergency Visit Emergency Visit: No - New Patient This patient is new to me today: No - Critical Care Critical Care patient: Yes Total Critical Care Time (in minutes): 35 Critical Care Statement: The care of this patient involved high complexity decision making to prevent further life threatening deterioration of the patient 's condition and/or to evalute & treat vital organ system(s) failure or risk of failure.
--- NOTE | 2016-05-15 14:56 | PN ---
Teaching Attending Note Name of Resident: Fermin Quick ATTENDING PHYSICIAN STATEMENT I saw and evaluated the patient. I reviewed the resident's note and discussed the case with the resident. I agree with the resident's findings and plan as documented. SUBJECTIVE: Feels overall better. Edema has significantly improved. Tolerated PO intake. Clinical history and symptomatology consistent with Sleep Apnea. Intake & Output 05/12/16 05/13/16 05/14/16 05/15/16 23:59 23:59 23:59 23:59 Intake Total 600 900 Output Total 400 Balance 600 500 Weight 219 lb 15.988 oz Last Vital Signs Temp Pulse Resp BP Pulse Ox 98.4 F 96 H 18 128/70 100 05/15/16 04:00 05/15/16 10:16 05/15/16 10:00 05/15/16 10:16 05/14/16 23:31 Active Medications Chlorhexidine Gluconate (Hibiclens For Decolonization -) 1 applic TP HS [facility] Last Admin: 05/14/16 22:01 Dose: 1 applic Dexamethasone Sodium Phosphate (Decadron Injection -) 10 mg IVPB Q6H-IV [facility] Last Admin: 05/15/16 09:44 Dose: 10 mg Heparin Sodium (Porcine) (Heparin -) 5,000 unit SQ TID [facility] Last Admin: 05/15/16 13:48 Dose: Not Given Famotidine/Sodium Chloride (Pepcid 20 Mg Premixed Ivpb -) 50 mls @ 100 mls/hr IVPB BID [facility] Last Admin: 05/15/16 09:43 Dose: 100 mls/hr Sodium Chloride (1/2 Normal Saline) 1,000 mls @ 75 mls/hr IV ASDIR [facility] Last Admin: 05/14/16 19:06 Dose: 75 mls/hr Insulin Aspart (Novolog Vial Sliding Scale -) 1 vial SQ Q6HPO [facility] PRN Reason: Protocol Last Admin: 05/15/16 13:48 Dose: Not Given Mupirocin (Bactroban Ointment (For Decolonization) -) 1 applic NS BID [facility] Stop: 05/19/16 21:59 Last Admin: 05/15/16 10:15 Dose: 1 applic Constitutional: Yes: Well Nourished, No Distress Eyes: Yes: WNL HENT: Yes: Atraumatic, Mallampati III. No: Hoarseness Neck: Yes: Other (slightly edenemous) Cardiovascular: Yes: S1, S2 Respiratory: Yes: Clear No: Wheezes Gastrointestinal: Yes: Normal Bowel Sounds, Abdomen, Obese. No: Tenderness ...Rectal Exam: Yes: Deferred Musculoskeletal: No: Muscle Pain Edema: Yes Edema: LUE: Trace, RUE: Trace Peripheral Pulses WNL: (+2 bilateral pedal pulses) Integumentary: Yes: WNL Neurological: Yes: WNL Psychiatric: Yes: WNL Labs: Laboratory Results - last 24 hr 05/14/16 05/14/16 05/15/16 19:31 22:34 04:11 WBC RBC Hgb Hct MCV MCHC RDW Plt Count MPV INR Sodium Potassium Chloride Carbon Dioxide Anion Gap BUN Creatinine POC Glucometer 355.13724 363.98730 [phone] Random Glucose Calcium Phosphorus Magnesium 05/15/16 05/15/16 05/15/16 05:05 05:05 05:05 WBC 11.4 H RBC 5.27 Hgb 15.3 Hct 44.6 MCV 84.6 MCHC 34.4 RDW 13.7 Plt Count 197 MPV 9.7 INR 1.18 H Sodium 136 Potassium 4.1 D Chloride 100 Carbon Dioxide 26 Anion Gap 10 BUN 15 Creatinine 1.3 POC Glucometer Random Glucose 249 H Calcium 9.4 Phosphorus 1.1 L* Magnesium 1.7 L 05/15/16 05/15/16 05:49 12:12 WBC RBC Hgb Hct MCV MCHC RDW Plt Count MPV INR Sodium Potassium Chloride Carbon Dioxide Anion Gap BUN Creatinine POC Glucometer 272.50789 [phone] Random Glucose Calcium Phosphorus Magnesium Assessment/Plan Angioedema secondary to lisinopril. Suspected OSAS (?) HTN D/C planning Would hold on pharmacologic treatment of mildly elevated BP Will need formal sleep apnea work up Dr Davenport
[2016-05-15 15:54] VITALS: BP 138/80; PULSE 92
--- NOTE | 2016-05-19 20:13 | CONS ---
DATE OF CONSULTATION: 05/14/2016 REFERRING PROVIDER: Connie Roger NP REASON FOR CONSULTATION: Throat swelling. HISTORY OF PRESENT ILLNESS: This 66-year-old gentleman has a history of hypertension. He was just started on lisinopril 2 days prior to today and this morning experienced severe swelling of his throat. His voiced changed and he was having trouble swallowing his own secretions. He presented to the emergency department. Upon arrival, he was found to have significant uvula edema and angioedema was suspected. Medications ordered including fresh frozen plasma, steroids, antihistamines, and H2 inhibitors. Examination is now performed for further evaluation and management. Patient denies previous throat problems. He has significant throat discomfort and his voice sounds bad but he is not struggling to breathe. He has never had a problem like this in the past. He denies any other known allergies to medications, foods, or other allergens. On exam, he is a well-developed male in no acute distress but in mild discomfort. Head is normal. Eyes are clear. Ears are unremarkable. The nose is normal externally. There is mucosal edema and turbinate enlargement. The oral cavity is normal with normal lips, teeth and tongue. The floor of mouth is normal. Hard palates are normal. Soft palate shows marked edema, which is watery and symmetric. There is no tonsil infection nor signs of peritonsillar abscess. The posterior oropharyngeal wall cannot be seen because of the degree of soft palate and uvula swelling, however, the voice sounds muffled but there is no stridor or respiratory distress. The neck is unremarkable. There are no retractions, no accessory muscle use. IMPRESSION: Acute angioedema with soft palate edema, suspected due to new IVANA inhibitor use. RECOMMEND: Admit for airway observation, discontinue lisinopril, medical consultation, diet may be advanced when the patient is more comfortable. The patient is in no acute airway distress but should be closely monitored. Thank you for your confidence in referring the patient in consultation. SUJATA UHERTAS M.D. [id number]
== END 2016-05-15 17:37 | disposition home or self-care (01) | DRG 916 ==
LOC: JER 13:04 → JERBED 13:46 → JICU 16:00
PROVIDERS: ADMIT Internal Medicine; ATTEND Internal Medicine
PROC: 30233K1 Transfusion of Nonautologous Frozen Plasma into Peripheral Vein, Percutaneous Approach (ICD-10-PCS; principal; 2016-05-14)
DX: T78.3XXA Angioneurotic edema, initial encounter (principal); N17.9 Acute kidney failure, unspecified; T46.4X5A Adverse effect of angiotensin-converting-enzyme inhibitors, initial encounter; J39.2 Other diseases of pharynx; E86.0 Dehydration; E11.9 Type 2 diabetes mellitus without complications; Z79.4 Long term (current) use of insulin; E87.6 Hypokalemia; I10 Essential (primary) hypertension; E78.5 Hyperlipidemia, unspecified; E83.39 Other disorders of phosphorus metabolism; E83.42 Hypomagnesemia
CPT/HCPCS: 36415; 36430; 71010-TC; 80048; 80053; 83735; 84100; 85025; 85027; 85610; 86850; 86900; 86901; 93005; 93010; 99285-25; J1644; P9017